=== PATIENT | female | born 1980 | race Caucasian/White ===

== ENCOUNTER → 2017-05-02 | Outpatient (REF) ==
[~2017-05-02] MED LIST: ATIVAN 0.50.5 MG/TAB PO; CELEXA 20MG20 MG/TAB PO; CEPHALEXIN500 M1 PO; NORCO 325 MG-7.1 TAB PO; PROMETHAZINE12.5 M5 PO; PROTONIX 40MG T40 MG PO; ROXICODONE 55 MG/TAB PO; TOPROL XL 25MG25 MG PO; WELLBUTRIN XL150 MG PO
== END ==
LOC: WSOH 09:37 → WSPT 11:30
DX: Z02.1 Encounter for pre-employment examination (principal)

== ENCOUNTER → 2017-05-05 | Outpatient (REF) | LOC: WSPT 10:15 | DX: Z02.1 Encounter for pre-employment examination (principal) ==

== ENCOUNTER → 2018-09-21 | Outpatient (CLI) | payer OTHER ==
[2018-09-21 16:28] LABS: BASO # 0.1 (0.0-0.2); BASO % 0.8 % (0.0-2.0); EOS # 0.2 (0.0-0.7); GRAN # 3.2 (1.4-6.5); GRAN % 49.2 % (42.2-75.2); HEMATOCRIT 39.3 % (37.0-47.0); HEMOGLOBIN 13.2 g/dl (12.5-16.0); LYMPH # 2.5 (1.2-3.4); LYMPH % 37.8 % (20.0-51.0); MEAN CELL VOLUME 100 fl (80.0-100.0); MEAN CORPUSCULAR HEMOGLOBIN 34 pg (27.0-31.0); MEAN CORPUSCULAR HGB CONC 34 g/dl (33.0-37.0); MONO # 0.6 (0.1-0.6); PLATELET COUNT 282 K/mm3 (130-400); RED BLOOD COUNT 3.92 M/mm3 (4.10-5.30); REDCELL DISTRIBUTION WIDTH-CV 14.6 % (11.5-14.5)
[2018-09-21 16:39] LABS: ALBUMIN 3.9 gm/dL (3.5-5.0); BILIRUBIN,TOTAL 0.6 mg/dL (0.0-1.0); CALCIUM 8.7 mg/dL (8.4-10.2); CHOLESTEROL RISK RATIO 2.2; CREATININE, serum 0.66 (0.52-1.25); POTASSIUM 3.9 mmol/L (3.4-5.0); TOTAL PROTEIN 6.3 gm/dL (6.4-8.2)
[2018-09-21 16:51] LABS: HIV 1/2 Antibodies Non-Reactive; HIV-1p24 Antigen Non-Reactive
[2018-09-21 17:09] LABS: THYROID STIMULATING HORMONE 3.35 uIU/mL (0.465-4.680)
== END ==
LOC: ZCOL.LAB 16:13
PROVIDERS: Family Medicine
DX: Z13.6 Encounter for screening for cardiovascular disorders (principal); Z13.29 Encounter for screening for other suspected endocrine disorder; Z11.3 Encounter for screening for infections with a predominantly sexual mode of transmission; Z85.71 Personal history of Hodgkin lymphoma; N89.8 Other specified noninflammatory disorders of vagina

== ENCOUNTER → 2019-03-17 | Outpatient (CLI) | payer SELFPAY | LOC: ZCOL.LAB 18:02 | DX: N89.8 Other specified noninflammatory disorders of vagina (principal); R39.15 Urgency of urination ==

== ENCOUNTER 2022-09-12 10:38 | Day surgery (SDC) | payer OTHER ==
[~2022-09-12] VITALS: Ht 147.3 cm; Wt 63.0 kg
[2022-09-12] VITALS (10 sets, daily range): BP systolic 110–128; BP diastolic 71–79; PULSE 88–108; TEMP 97.8–98.5
[~2022-09-12 10:38] MED LIST changes: +PERCOCET 325 MG1 TA2 PO
--- NOTE | 2022-09-12 16:00 | NUR ---
PATIENT ARIVED TO UNIT IN STABLE CONDITION. JAVED CATHETER PATENT. PATIETN COMPLAINING OF SOME NAUSEA, CHIEF OPHTHALMIC TECHNICIAN GAVE ZOFRAN RIGHT BEFORE TRANSFERING PATIENT TO UNIT. PATIENT STATED SHE IS HAVING ABD PAIN RATED 3/10, HOWEVER DECLINED PAIN MEDCIATION AT THIS TIME. PATIENT GIVEN ICE CHIPS, CRAKCERS AND CHICKEN BROTH SHE REQUESTED. LAP SITES CLEAN DRY AND INTACT. PATIENT HAS CALL LIGHT WITHIN REACH. FAMILY MEMBERS AT BEDSIDE.
--- NOTE | 2022-09-12 16:35 | NUR ---
PATIENTS MOTHER ADDAMENT PATIENT NEEDS PAIN MEDICATION. WHEN ASKING THE PATIENT IF SHE WOULD LIKE ANY THING FOR PAIN, PATIENT REFUSES AT THIS TIME AND STATED SHE WILL CALL IF NEEDED. CALL LIGHT WITHIN REACH.POST OP VITALS ONGOING.
--- NOTE | 2022-09-12 19:06 | NUR ---
Patient complained of nausea, IV zofran given, heating pad applied to her back per request.
--- NOTE | 2022-09-12 19:12 | NUR ---
PATIENT DENIES ANY HOME MEDICATIONS. ONLY PICKED UP THE OXYCODONE RECENTLY FOR AFTER THIS SURGERY. THIS RN UNABLE TO DC HOME MEDS THAT PATIENT IS NO LONGER TAKEN, WHEN ATTEMPTED NOTIFICATION STATES MEDICATIONS ALREADY FINALIZED BY MD.
--- NOTE | 2022-09-12 21:38 | NUR ---
Patient assessed at this time, reports heating pad helped her pain, see shift assessment, reports pain isn't bad with PS of 3/10, walked down the hallway standby assist, LR running at 125cc/hr infusing well on right AC, SCD's on, denies further needs, call light and personal items within reach, will continue to monitor.
[2022-09-13 03:43] VITALS: BP 106/67; PULSE 97; TEMP 98.6
--- NOTE | 2022-09-13 07:19 | NUR ---
Shift report received from the night nurse, MOHAMUD Farah
[2022-09-13 08:19] VITALS: BP 100/64; PULSE 101; TEMP 98.1
--- NOTE | 2022-09-13 10:52 | NUR ---
Patient sitting up in a chair by the bedside. 4 lap site intact, no drainage noted at the abdomen. Patient denies pain or needs at this time. See process intervention for notes.
--- NOTE | 2022-09-13 11:44 | NUR ---
Discharge instruction given, educational material read and patient has no other question. INT discontinued and patient escorted out of the facility via wheelchair.
== END 2022-09-13 11:28 | disposition home or self-care (01) ==
LOC: SDCO 10:38 → SURG 18:52 → SDCO 09-13 11:28
DX: D25.1 Intramural leiomyoma of uterus (principal); N88.8 Other specified noninflammatory disorders of cervix uteri; K66.0 Peritoneal adhesions (postprocedural) (postinfection)
CPT/HCPCS: OP; J0690; J2405; J2704; J3010; J7120